=== PATIENT | male | born 1965 | race Caucasian/White ===

== ENCOUNTER 2016-10-01 22:03 | Emergency (ER) | payer SELFPAY ==
[~2016-10-01] VITALS: Ht 175.3 cm; Wt 108.9 kg
[2016-10-01 22:08] VITALS: BP 124/76
== END 2016-10-01 22:30 | disposition left against medical advice (07) ==
LOC: ER 22:18
DX: R73.9 Hyperglycemia, unspecified (principal); Z79.4 Long term (current) use of insulin; Z53.21 Procedure and treatment not carried out due to patient leaving prior to being seen by health care provider